=== PATIENT | female | born 1965 | race Caucasian/White ===

== ENCOUNTER 2017-09-30 15:41 | Outpatient (CLI) | payer BC ==
--- NOTE | 2017-09-30 20:16 | MRI ---
RIGHT ANKLE AND HINDFOOT MRI WITHOUT IV CONTRAST 09/30/17 HISTORY: 52-year-old female with history of right foot pain with concern for plantar fascial fibromatosis. Pal pable knot over the anterior aspect of the foot which is marked. Multiplanar and multisequence MRI examination of the ankle and hindfoot is performed. there is some o steophytosis involving the middle cuneiform first metatarsal joint probably accounting for a palpable finding at this location. There is some mild associated arthrosis. No evidence for soft tissue or in terosseous mass. There is abnormal signal associated with the distal posterior tibialis tendon beginn ing approximately 2 to 3 cm from its navicular insertion consistent with a split type tear with some associated tendon sheath fluid. There appears to be some partial retraction of some of the tendon fib ers. The Achilles tendon is borderline thickened without associated abnormal intratendinous signal. T here is also thickening and abnormal high signal associated with the plantar fascia insertion with s ome very subtle marrow signal in the adjacent calcaneus, evidence for plantar fasciopathy/fasciitis. The remainder of the flexor tendons, peroneus tendons, and extensor tendons appear intact. No talar d ome osteochondral lesion. Medial and lateral ankle collateral ligament complexes appear intact. Small interosseous cyst in the medial malleolus. IMPRESSION: Evidence for a mid to high grade split type tear of the distal posterior tibialis tendon with some pa rtial retraction and some associated tenosynovitis. Abnormal signal associated with the plantar fasci a insertion, evidence for plantar fasciopathy/fasciitis. Borderline thickening of the Achilles tendon without evidence for associated abnormal signal. Minimal hypertrophic osteophytosis of the medial cu neiform first metatarsal joint. Evidence for mild degenerative change and probably accounting for the palpable finding at this location. Incidental small interosseous cyst in the medial malleolus. Other findings as above. POS: [facility]
== END 2017-09-30 15:42 | disposition home or self-care (01) ==
LOC: MRI 15:41
PROVIDERS: ATTEND Podiatrist
DX: M79.671 Pain in right foot (principal); M24.571 Contracture, right ankle; M72.2 Plantar fascial fibromatosis; S96.911A Strain of unspecified muscle and tendon at ankle and foot level, right foot, initial encounter; M65.871 Other synovitis and tenosynovitis, right ankle and foot